=== PATIENT | male | born 1965 | race Caucasian/White ===

== ENCOUNTER 2025-02-25 02:53 | Emergency (ER) | payer BC, SELFPAY ==
[2025-02-25 02:56] VITALS: BP 124/86
--- NOTE | 2025-02-25 05:00 | ED.SKININJ ---
HPI-Injury
<Blane Yoo MD, Resident - Last Filed: 02/25/25 05:49>
General
Chief Complaint: Bite
Source: patient
Time Seen by Provider: 02/25/25 04:30
History of Present Illness-Injury
Initial Injury comments:
Patient is a 60-year-old male with past medical history significant for essential hypertension, cardiomyopathy, knee injuries who is here for evaluation of wound after dog bite.
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 One of the newer dogs, who recently is reaching her adolescence got into a fight with another dog, in an attempt to intervene he and his got bitten. He is bitten on his right hand at the level of little
finger and the space between the right thumb and index finger. There is some swelling but the wounds are superficial.
All the dogs are immunized
His tetanus dose is up-to-date
Review of systems is negative
Past History
<Blane Yoo MD, Resident - Last Filed: 02/25/25 05:49>
Past History
ED Past Medical History: HTN and Valvular disease (MR)
Social History
Tobacco: Non-smoker
Review of Systems
<Blane Yoo MD, Resident - Last Filed: 02/25/25 05:49>
Review of Systems
All Other Systems: ROS reviewed and negative except as documented in HPI and ROS
Skin Exam
<Blane Yoo MD, Resident - Last Filed: 02/25/25 05:49>
Laceration
Right Dorsal Hand:
Orientation: horizontal
Type of Laceration: simple
Any active bleeding?: low grade venous oozing
Distal skin color and temperature: normal-warm & good color
Bite
Right Dorsal Hand:
Type: animal
Skin has: abrasions but intact
Phy Exam
<Blane Yoo MD, Resident - Last Filed: 02/25/25 05:49>
General Physical Exam
General Presentation: well appearing and no apparent distress
General age: appears stated age
Cardiovascular Exam
Cardiovascular Exam: regular rate/rhythm, no edema, no gallop and normal peripheral pulses
Pulmonary Exam
Pulmonary Exam: lungs clear and no respiratory distress
Gastrointestinal Exam
Gastrointestinal Exam: normal bowel sounds, non tender and soft
Neurological Exam
Neurological Exam: alert and oriented x3
Musculoskeletal Exam
Musculoskeletal Exam: full ROM and edema (Swelling of dorsal surface of the right hand with 2 small simple lacerations, neurovascular system intact with intact radial pulses)
Course
<Blane Yoo MD, Resident - Last Filed: 02/25/25 05:49>
Orders/Labs/Results
Orders:
Orders
02/25/25 05:16
Amoxicillin 875 mg/Clav 125 mg [Augmentin 875 mg/125 mg] 1 tablet PO NOW STA
Vital Signs
Initial and Last Documented VS:
Initial Vital Signs
Temp Pulse Resp BP Pulse Ox
97.5 F 76 16 124/86 98
02/25/25 02:56 02/25/25 02:56 02/25/25 02:56 02/25/25 02:56 02/25/25 02:56
Last Documented Vital Signs
Temp Pulse Resp BP Pulse Ox
97.5 F 76 16 124/86 98
02/25/25 02:56 02/25/25 02:56 02/25/25 02:56 02/25/25 02:56 02/25/25 05:06
<Ladonna Quintana DO - Last Filed: 02/25/25 05:54>
Orders/Labs/Results
Orders:
Orders
02/25/25 05:16
Amoxicillin 875 mg/Clav 125 mg [Augmentin 875 mg/125 mg] 1 tablet PO NOW STA
Vital Signs
Initial and Last Documented VS:
Initial Vital Signs
Temp Pulse Resp BP Pulse Ox
97.5 F 76 16 124/86 98
02/25/25 02:56 02/25/25 02:56 02/25/25 02:56 02/25/25 02:56 02/25/25 02:56
Last Documented Vital Signs
Temp Pulse Resp BP Pulse Ox
97.5 F 76 16 124/86 98
02/25/25 02:56 02/25/25 02:56 02/25/25 02:56 02/25/25 02:56 02/25/25 05:06
<Blane Yoo MD, Resident - Last Filed: 02/25/25 05:49>
MDM/Problems Addressed
Differential Diagnosis Includes:
Dog bite
MDM/Problems Addressed:
- wound looks clean
Dogs were immunized
Patient up-to-date on tetanus-received last dose last year
Give 1 dose of Augmentin now
Discharged with total 10-day course of antibiotic
<Blane Yoo MD, Resident - Last Filed: 02/25/25 05:49>
*Pulse Oximetry
SaO2: 98
Oxygen Mode of Delivery: Room air
Patient hypoxic: no
*Critical Care Note
Total Time (30-74mins, 75-104mins- exclusive of procedures): Not Applicable
ED Attending Note
<Blane Yoo MD, Resident - Last Filed: 02/25/25 05:49>
-
Portions of this chart may have been created with voice recognition software.� Occasional wrong word or��sound alike� substitutions may have occurred due to the inherent limitations of voice recognition software.
<Ladonna Quintana DO - Last Filed: 02/25/25 05:54>
ED Attending Note
Patient seen and examined by attending physician: Yes
I performed a history and physical exam of patient and discussed management with resident, I reviewed resident's note and agree with documented findings and plan of care.: Yes
ED Attending Note:
This is a 60-year-old right handed dominant gentleman who was inadvertently bitten by his own dog this evening around 10 PM while 2 of his dogs began fighting. He and his attempted to pull them apart, they were both bitten on their hands. The
was seen in this ED earlier.
Both dogs are up-to-date with immunizations including rabies vaccination.
Patient himself is up-to-date with Tdap this year.
He notes mild pain and local swelling dorsal right hand but no weakness or numbness. No significant bleeding.
60-year-old gentleman appears his stated age, bright and alert, pleasant, appears in no acute distress.
Right hand: There is a very superficial laceration, 2 cm dorsal aspect of the hand at the distal second metacarpal region. There is a superficial puncture wound dorsal aspect at the fifth metacarpal region. Mild local soft tissue swelling of the
dorsal hand. No erythema, no bleeding, no drainage. Minimal local tenderness to palpation. Full digit and wrist range of motion without difficulty nor pain.
Distal sensation and strength intact.
X-ray considered but minimal pain, full range of motion, very superficial laceration and puncture wound not requiring surgical repair.
Will plan for normal saline irrigation, bacitracin and Band-Aid and will start a course of Augmentin.
Recommend Tylenol versus ibuprofen as needed for pain.
Return precautions discussed.
Discharge Plan
Departure
Patient Disposition: Home (Routine Discharge)
Date of Disposition: 02/25/25
Time of Disposition: 05:40
Patient with high blood pressure during this ER visit?: No
Discharge Problem:
dogbite
Instructions: Animal Bites (DC)
Prescriptions:
New
amoxicillin-pot clavulanate 875-125 mg tablet
1 tab PO BID 10 Days Qty: 20 0RF
No Action
doxycycline hyclate 100 mg capsule
100 mg PO BID Qty: 28 0RF
Referrals:
Ant Lord MD [Family Provider, Internal Medicine]
Activity Restrictions/Additional Instructions:
KEEP WOUND CLEAN AND DRY
USE AUGMENTIN DIRECTED FOR 7-10 DAYS
PLEASE COME BACK TO ER IN CASE OF WORSENING SWELLING,FEVER,NAUSEA,VOMITING OR ANY OTHER WORRISOME SIGNS
Interventions
Interventions:
*Risk Screen - Suicide Last Done: 02/25/25 02:56
*General Assessment Last Done: 02/25/25 03:35
*Neglect/Abuse Screening Last Done: 02/25/25 02:56
*ED COVID-19 Vaccine History Last Done: 02/25/25 02:56
*ED Influenza Vaccine History Last Done: 02/25/25 02:56
[facility] Fall Risk Assessment Tool Last Done: 02/25/25 03:35
*Nursing Disposition Last Done: 02/25/25 05:51
ED-Skin Assessment Last Done: 02/25/25 03:33
Discharge Date and Time
Print Language: NAMIBIAN
[2025-02-25] MEDS: AUGMENTIN 875 MG/125 MG 1 TABLET PO (05:50)
== END 2025-02-25 05:52 | disposition home or self-care (01) ==
LOC: EMR 02:53
PROVIDERS: EMERGENCY PHYSICIAN Emergency Medicine; FAMILY PHYSICIAN Internal Medicine
DX: S61.451A Open bite of right hand, initial encounter (principal); W54.0XXA Bitten by dog, initial encounter; Y92.009 Unspecified place in unspecified non-institutional (private) residence as the place of occurrence of the external cause; I10 Essential (primary) hypertension; I42.9 Cardiomyopathy, unspecified; I34.0 Nonrheumatic mitral (valve) insufficiency
CPT/HCPCS: 99283